=== PATIENT | female | born 1965 | race African-American/Black ===

== ENCOUNTER 2017-10-08 11:39 | Emergency (ER) | payer MEDICARE, MEDICAID ==
[~2017-10-08] VITALS: Ht 167.6 cm; Wt 82.0 kg
[2017-10-08 15:30] VITALS: BP 125/75
[2017-10-08] MEDS ORDERED: KETOROLAC 60MG/2ML VIAL IM ONE (15:45)
== END 2017-10-08 16:58 | disposition home or self-care (01) ==
LOC: ER 12:06
DX: S90.01XA Contusion of right ankle, initial encounter (principal); J45.909 Unspecified asthma, uncomplicated; Z98.84 Bariatric surgery status; W18.39XA Other fall on same level, initial encounter; Y93.89 Activity, other specified; Y92.89 Other specified places as the place of occurrence of the external cause; Y99.8 Other external cause status
CPT/HCPCS: 96372; 99283; J1885